=== PATIENT | female | born 1960 | race Two or more races ===

== ENCOUNTER 2024-04-14 16:10 | Emergency (ER) | payer OTHER ==
[~2024-04-14] VITALS: Ht 157.5 cm; Wt 68.3 kg
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
[2024-04-14 16:55] VITALS: BP 155/99; PULSE 88; RESP 18; TEMP 98; O2SAT 99
[2024-04-14] MEDS: ACETAMINOPHEN 500 MG TAB or CAP PO ONE (16:55)
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
[2024-04-14] MEDS ORDERED: IBUP-1456 PO (17:43)
[2024-04-14] MEDS ORDERED: METH-1182 PO (17:43)
== END 2024-04-14 17:51 | disposition home or self-care (01) ==
LOC: EDBD 16:10 → ER 16:10
DX: S16.1XXA Strain of muscle, fascia and tendon at neck level, initial encounter (principal); S83.92XA Sprain of unspecified site of left knee, initial encounter; S50.11XA Contusion of right forearm, initial encounter; V44.5XXA Car driver injured in collision with heavy transport vehicle or bus in traffic accident, initial encounter; Y93.89 Activity, other specified; Y92.89 Other specified places as the place of occurrence of the external cause; Y99.8 Other external cause status
CPT/HCPCS: 72040; 73562